=== PATIENT | female | born 1990 | race American Indian/Alaskan Native ===

== ENCOUNTER 2017-08-08 16:48 | Emergency (ER) | payer OTHER ==
[2017-08-08 16:57] VITALS: BP 119/87; PULSE 89; RESP 20; TEMP 97.9; O2SAT 100
--- NOTE | 2017-08-08 17:30 | C.PDOC ---
Time Seen by Provider: 08/08/17 16:56 Chief Complaint (Nursing): Dental Pain Past Medical History Vital Signs: Last Vital Signs Temp 97.9 F 08/08/17 16:56 Pulse 89 08/08/17 16:56 Resp 20 08/08/17 16:56 BP 119/87 08/08/17 16:56 Pulse Ox 100 08/08/17 16:56 - Medical History PMH: Anemia, Bronchitis Family History: States: Unknown Family Hx - Social History Hx Alcohol Use: Yes Hx Substance Use: No ED Course And Treatment O2 Sat by Pulse Oximetry: 100 Medical Decision Making Medical Decision Making: pt to be given tylenol in ed (last dose ibuprofen 2 hours ago of 400 mg), and dose of amoxicillin. information re [facility] given to patient and she has been advised to find soonest appt. Disposition Counseled Patient/Family Regarding: Diagnosis, Need For Followup, Rx Given - Disposition Disposition: HOME/ ROUTINE Disposition Time: 17:29 Condition: STABLE Additional Instructions: Take antibiotics as prescribed. Follow up with dentist as soon as possible. Take naproxen and Tylenol as prescribed for pain. Prescriptions: Acetaminophen [Tylenol 325mg tab] 650 mg PO Q6 #30 tab Amoxicillin [Amoxil 500 mg Cap] 500 mg PO TID #21 cap Naproxen 500 mg PO BID #20 tab Instructions: Toothache (ED) Forms: [facility] (Faroese), General Discharge Instructions, Work Excuse - Clinical Impression Clinical Impression: Toothache
--- NOTE | 2017-08-08 17:31 | C.PDOC ---
History Of Present Illness 27yo female, presents to ED for evaluation of left upper and lower mouth pain, present for the past couple days. Patient states she had similar pain in the past and was given antibiotics which resolved her pain. Patient states she did not follow up with a dentist but has a dental appointment in August. She has been taking Ibuprofen and Naprosyn with mild relief of her pain. She denies any fever or facial swelling. No other complaints. Time Seen by Provider: 08/08/17 16:56 Chief Complaint (Nursing): Dental Pain History Per: Patient History/Exam Limitations: no limitations Onset/Duration Of Symptoms: Days Current Symptoms Are (Timing): Still Present Quality: Positive for: "Pain" Past Medical History Reviewed: Historical Data, Nursing Documentation, Vital Signs Vital Signs: Last Vital Signs Temp 97.9 F 08/08/17 16:56 Pulse 89 08/08/17 16:56 Resp 20 08/08/17 16:56 BP 119/87 08/08/17 16:56 Pulse Ox 100 08/08/17 17:34 - Medical History PMH: Anemia, Bronchitis Surgical History: No Surg Hx Family History: States: Unknown Family Hx - Social History Hx Alcohol Use: Yes Hx Substance Use: No Review Of Systems Constitutional: Negative for: Fever ENT: Positive for: Other (left upper and lower mouth pain; no facial swelling) Physical Exam - Physical Exam Appears: Non-toxic Skin: Warm, Dry Head: Other (no facial swelling noted) Oral Mucosa: Moist Teeth: Tender To Palpation (left upper and lower) Gingiva: Normal Appearing, No Swelling Lymphatic: No Adenopathy ED Course And Treatment O2 Sat by Pulse Oximetry: 100 (RA) Pulse Ox Interpretation: Normal Medical Decision Making Medical Decision Making: pt to be given tylenol in ed (last dose ibuprofen 2 hours ago of 400 mg), and dose of amoxicillin. information re [facility] given to patient and she has been advised to find soonest appt. Disposition - Disposition Disposition Time: 17:29 Condition: STABLE Additional Instructions: Take antibiotics as prescribed. Follow up with dentist as soon as possible. Take naproxen and Tylenol as prescribed for pain. Prescriptions: Acetaminophen [Tylenol 325mg tab] 650 mg PO Q6 #30 tab Amoxicillin [Amoxil 500 mg Cap] 500 mg PO TID #21 cap Naproxen 500 mg PO BID #20 tab Instructions: Toothache (ED) Forms: General Discharge Instructions, [facility] (Tanzanian), Work Excuse - Clinical Impression Clinical Impression: Toothache - PA / [employer] / Resident Statement MD/DO has reviewed & agrees with the documentation as recorded. - Scribe Statement The provider has reviewed the documentation as recorded by the Scribe Roseanne Hamlin Provider Attestation: All medical record entries made by the Ericibe were at my direction and personally dictated by me. I have reviewed the chart and agree that the record accurately reflects my personal performance of the history, physical exam, medical decision making, and the department course for this patient. I have also personally directed, reviewed, and agree with the discharge instructions and disposition.
== END 2017-08-08 17:40 | disposition home or self-care (01) ==
LOC: C.ER 16:48
DX: K08.89 Other specified disorders of teeth and supporting structures (principal)